=== PATIENT | male | born 1955 | race Caucasian/White ===

== ENCOUNTER 2019-02-21 19:45 | Emergency (ER) | payer BC ==
[2019-02-21 20:01] VITALS: BP 158/98; PULSE 89; TEMP 97.7; BMI 29.6
--- NOTE | 2019-02-21 20:17 | PDOC ---
Documentation entered by Miriam Live SCRIBE, acting as scribe for Celia Camarena MD. Celia Camarena MD: This documentation has been prepared by the [employer] Renju, SCRIBE, under my direction and personally reviewed by me in its entirety. I confirm that the documentation accurately reflects all work, treatment, procedures, and medical decision making performed by me. History of Present Illness - General Chief Complaint: Laceration Stated Complaint: RT 3RD, 4TH FINGER LACERATIONS History Source: Patient Exam Limitations: No Limitations - History of Present Illness Initial Comments: 02/21/19 20:19 The patient is a 64 year old male who presents to the emergency department for evaluation of laceration on the third digit of the right hand. Patient reports slicing the third digit of his right hand on the blade of a lawnmower while attempting to fix it this evening. Patient endorses active bleeding and notes he used a gauze pad to stop the bleeding prior to coming to the ED for further evaluation. The patient denies any other trauma, chest pain, shortness of breath, headache, and dizziness. PAST MEDICAL HISTORY: no significant history PAST SURGICAL HISTORY: Denies. FAMILY HISTORY: no pertinent history SOCIAL HISTORY: Pt lives with family and is employed. MEDICATIONS: reviewed ALLERGIES: As per nursing notes Review of Systems General: No fevers or chills, no weakness, no weight loss HEENT: No change in vision. No sore throat,. No ear pain Cardiovascular: No chest pain or shortness of breath Respiratory: No cough, or wheezing. Gastrointestinal: no nausea, vomiting, diarrhea or constipation, No rectal bleeding Genitourinary: No dysuria, hematuria, or frequency Musculoskeletal: No joint or muscle pain or swelling Neurologic: No headache, vertigo, dizziness or loss of consciousness Psychiatric: nor depression Skin: (+)Right hand Third Digit Laceration. No rashes or easy bruising Endocrine: no increased thirst or abnormal weight change Allergic: no skin or latex allergy All other systems reviewed and normal Physical Exam GENERAL: The patient is awake, alert, and fully oriented, in no acute distress. HEAD: Normal with no signs of trauma. EYES: Pupils equal, round and reactive to light, extraocular movements intact, sclera anicteric, conjunctiva clear. EXTREMITIES: (+)1.5 cm laceration over middle phalanx palmar side of 3rd digit of the right hand. Normal range of motion, no edema. NEUROLOGICAL: Normal speech, normal gait. PSYCH: Normal mood, normal affect. SKIN: Warm, Dry, normal turgor, no rashes or lesions noted. 02/21/19 21:05 Assessment and plan: This is a 64-year-old male with a laceration to his middle phalanx of his left middle finger. Laceration was closed with Dermabond. Patient was discharged home Seizure note laceration repair with Dermabond Laceration cleaned a tourniquet was placed on the finger to stop the bleeding and laceration was closed with Dermabond Past History - Past Medical History Allergies/Adverse Reactions: Allergies Allergy/AdvReac Type Severity Reaction Status Date / Time No Known Allergies Allergy Verified 02/21/19 19:48 Home Medications: Ambulatory Orders NK [No Known Home Medication] 02/21/19 COPD: No Other medical history: DENIES - Suicide/Smoking/Psychosocial Hx Smoking History: Never smoked Have you smoked in the past 12 months: No Information on smoking cessation initiated: No Hx Alcohol Use: (daily) *Physical Exam - Vital Signs Last Vital Signs Temp Pulse Resp BP Pulse Ox 97.7 F 89 18 158/98 98 02/21/19 19:45 02/21/19 19:45 02/21/19 19:45 02/21/19 19:45 02/21/19 19:45 *DC/Admit/Observation/Transfer Diagnosis at time of Disposition: Finger laceration Qualifiers: Finger: middle finger Damage to nail status: without damage Foreign body presence: without foreign body Laterality: left - Discharge Dispostion Disposition: HOME Condition at time of disposition: Stable - Referrals - Patient Instructions Printed Discharge Instructions: DI for Laceration Repair With Dermabond Additional Instructions: You can take Tylenol or Motrin if needed for pain, Make sure you read over the Dermabond instructions. Ashraf points: you keep it dry for at least 48 hours and do not put any petroleum based products on it such as bacitracin or antibiotic ointment. The petroleum based products well dissolve the glue and cause it to come off. Return to the emergency department immediately with ANY new, persistent or worsening symptoms. Continue any medications as previously prescribed by your physician. You should follow up with your primary doctor as soon as possible regarding today's emergency department visit. . Please make sure your doctor reviews the results of your emergency evaluation. Thank you for coming to the Emergency Department today for your care. It was a pleasure to see you today. Please note that your evaluation is INCOMPLETE until you follow-up with your doctor. - Post Discharge Activity
== END 2019-02-21 20:25 | disposition home or self-care (01) ==
LOC: FER 19:45
PROC: 0HQFXZZ Repair Right Hand Skin, External Approach (ICD-10-PCS; principal; 2019-02-21)
DX: S61.212A Laceration without foreign body of right middle finger without damage to nail, initial encounter (principal); W26.8XXA Contact with other sharp object(s), not elsewhere classified, initial encounter; Y93.89 Activity, other specified; Y92.89 Other specified places as the place of occurrence of the external cause
CPT/HCPCS: 99283-25